=== PATIENT | male | born 1980 | race Hispanic/Latino ===

== ENCOUNTER → 2024-01-27 11:07 | Outpatient (REF) | payer OTHER, SELFPAY ==
[2024-01-27 13:50] LABS: HDL Cholesterol 38 mg/dl; Total Cholesterol 230 mg/dl (50-199)
[2024-01-27 13:52] LABS: Triglyceride 492 mg/dl (10-149)
[2024-01-27 14:17] LABS: LDL Cholesterol, Direct 94 mg/dl
== END ==
LOC: REG 11:07
PROVIDERS: ATTENDING PHYSICIAN Internal Medicine
DX: E78.01 Familial hypercholesterolemia (principal)
CPT/HCPCS: 36415; 80061; 83721

== ENCOUNTER → 2024-10-08 07:19 | Outpatient (REF) | payer OTHER, SELFPAY ==
[2024-10-08 08:21] LABS: % Basophils 0.7 % (0-2); % Eosinophils 3.6 % (0-6); % Immature Granulocytes 0.4 % (0-0.5); % Lymphocytes 44.5 % (20.5-51.1); % Monocytes 9.4 % (1.7-9.3); % Neutrophils 41.4 % (42.2-75.2); Absolute Eosinophils 0.2 10^3/uL (0-0.7); Absolute Lymphocytes 2.5 10^3/uL (1.2-3.4); Absolute Monocytes 0.5 10^3/uL (0.1-0.6); Absolute Neutrophils 2.3 10^3/uL (1.4-6.5); Hematocrit 45.9 % (39.0-52.0); Hemoglobin 16.2 g/dL (13.0-18.0); Mean Corp Hgb Conc. 35.3 g/dL (33.0-37.0); Mean Corpuscular Hgb 29.8 pg (27.0-31.0); Mean Corpuscular Volume 84.5 fL (80.0-94.0); Mean Platelet Volume 11.8 fL (7.4-10.4); Nucleated Red Blood Cells % 0 % (-); Platelet Count 172 10^3/uL (130-400); Red Blood Cell Count 5.43 10^6/uL (4.70-6.10); Red Cell Dist. Width 12.3 % (11.5-14.5); White Blood Cell Count 5.6 10^3/uL (4.8-10.8)
[2024-10-08 08:56] LABS: ALT (SGPT) 135 U/L (0-50); AST (SGOT) 64 U/L (17-59); Albumin 4.1 g/dl (3.5-5.0); Alkaline Phosphatase 135 U/L (38-126); Blood Urea Nitrogen 20 mg/dl (9-20); Calcium 9.9 mg/dl (8.4-10.2); Carbon Dioxide 26 mmol/L (22-30); Chloride 107 mmol/L (98-107); Glucose 92 mg/dl (70-99); HDL Cholesterol 40 mg/dl; Potassium 4.9 mmol/L (3.5-5.1); Sodium 140 mmol/L (135-145); Total Bilirubin 0.6 mg/dl (0.2-1.3); Total Cholesterol 278 mg/dl (50-199); Total Protein 6.9 g/dl (6.3-8.2); eGFR > 60.00
[2024-10-08 08:58] LABS: Triglyceride 455 mg/dl (10-149)
[2024-10-08 09:21] LABS: LDL Cholesterol, Direct 103 mg/dl
[2024-10-08 09:28] LABS: PSA, Total - Screen 0.99 ng/ml (0.0-4.0)
[2024-10-08 10:24] LABS: Glycohemoglobin (HgbA1c) 4.8 % (4.0-5.6)
== END ==
LOC: CLINIC 07:19
PROVIDERS: ATTENDING PHYSICIAN Internal Medicine
DX: E78.01 Familial hypercholesterolemia (principal); I10 Essential (primary) hypertension
CPT/HCPCS: 36415; 80053; 80061; 83036; 83721; 85025; 85045; G0103

== ENCOUNTER → 2025-03-10 07:18 | Outpatient (REF) | payer OTHER, SELFPAY ==
[2025-03-10 08:26] LABS: HDL Cholesterol 38 mg/dl
[2025-03-10 09:08] LABS: LDL Cholesterol, Direct 80 mg/dl
== END ==
LOC: CLINIC 07:18
PROVIDERS: ATTENDING PHYSICIAN Internal Medicine
DX: G57.01 Lesion of sciatic nerve, right lower limb (principal)
CPT/HCPCS: 36415; 80061; 83721